=== PATIENT | female | born 1975 | race Caucasian/White ===

== ENCOUNTER 2023-11-02 12:40 | Emergency (ER) | payer OTHER, SELFPAY ==
[2023-11-02 12:42] VITALS: BP 172/103
--- NOTE | 2023-11-02 13:07 | ED.GENMED ---
History of Present Illness
General
Chief Complaint: Numbness
Source: patient
Time Seen by Provider: 11/02/23 13:07
Travel History
Have you had any contact with someone who has COVID-19?: No
Do you have any symptoms of coronavirus? Fever > 100 degrees, chills, cough, shortness of breath, sore throat, loss of taste or smell, muscle aches, or headache?: No
History of Present Illness
History of Present Illness:
48-year-old female presents to the emergency room complaining of paresthesias left face in the area of the mandible. This began yesterday. At that time she had no other associated symptoms. Patient was awoken from sleep at about midnight with
palpitations. She felt her heart was racing. He felt this way for couple hours and bring her from falling back to sleep. Eventually did fall back asleep plan to get up for work this morning. At work she began experiencing paresthesias of her
left arm and left leg. She feels like her left foot is 'in water'. She is able to ambulate. She is able to perform all daily activities. She is not having palpitations at this time. Additionally she had a mild headache this morning which seems
to be gone now as well.
Past History
Past History
ED Past Medical History: Other (Kidney stones, gallstones status post cholecystectomy, pyelo)
ED Past Surgical History: Cholecystectomy and Gynecological (Hysterectomy)
Social History
Tobacco: Smoker
Alcohol: Occasional
Family History
Family History: Negative Diabetes, Hypertension or CAD
Phy Exam
Physical Exam
Physical Exam:
General: Awake, Alert, Oriented X3. No acute distress.
Vitals: Moderately hypertensive
Head: Atraumatic
Eyes: Pupils equal, EOMI
Throat: Airway intact, no exudates
Neck: Trachea midline
Lungs: Clear and equal b/l
Heart: Regular rate, no murmurs
Abd: Soft, Nontender, No pulsatile mass
Neuro: Cranial nerves intact, muscle strength equal bilaterally, cerebellar exam normal
Skin: Warm, dry, no rash
Extremities: pulses equal b/l, no edema
Course
Orders/Labs/Results
Orders:
Orders
11/02/23 12:41
EKG [Electrocardiogram (*1)] Urgent
Reason for Study: Palpitations
EKG- Treatment ONCE
11/02/23 13:20
CT Head W/o Iv Contrast Urgent
Comment:
Reason For Exam: paresthesia left side
Cardiac Monitoring- Treatment ONCE
11/02/23 13:27
Basic Metabolic Panel Urgent
Complete Blood Count/With Diff Urgent
Lyme Progressive Urgent
TSH Reflex To Free T4 Urgent
Abnormal Lab Results
11/02/23
13:27
Absolute Monos (auto) 0.7 H 10^3/uL
(0.1-0.6)
Lymphocytes % 17.7 L %
(20.5-51.1)
Sodium 133 L mmol/L
(135-145)
Glucose 104 H mg/dl
(70-99)
11/02/23 13:27
11/02/23 13:27
Vital Signs
Initial and Last Documented VS:
Initial Vital Signs
Temp Pulse Resp BP Pulse Ox
97.6 F 83 18 172/103 98
11/02/23 12:42 11/02/23 12:42 11/02/23 12:42 11/02/23 12:42 11/02/23 12:42
Last Documented Vital Signs
Temp Pulse Resp BP Pulse Ox
97.6 F 83 18 172/103 98
11/02/23 12:42 11/02/23 12:42 11/02/23 12:42 11/02/23 12:42 11/02/23 12:42
*EKG
Interpreted by ED Provider?: Yes
Heart Rate: 66
Rate: normal
Rhythm: sinus
[place]: normal axis
Interval: normal interval
QRS Pattern: normal QRS
Ischemia: no ischemia
*Cub Reporter Interpretation
Rate: normal
Interpretation: normal
Rhythm: sinus
*Critical Care Note
Total Time (30-74mins, 75-104mins- exclusive of procedures): Not Applicable
ED Attending Note
-
Portions of this chart may have been created with voice recognition software.� Occasional wrong word or��sound alike� substitutions may have occurred due to the inherent limitations of voice recognition software.
Discharge Plan
Departure
Patient Disposition: Home (Routine Discharge)
Date of Disposition: 11/02/23
Time of Disposition: 15:32
Patient with high blood pressure during this ER visit?: No
Condition: Good
Discharge Problem:
Paresthesia
Instructions: Paresthesia (DC)
Prescriptions:
No Action
fluticasone propionate 1 SPRAY spray,suspension
1 spray intranasal DAILYPRN PRN (Reason: allergies,congestion)
loratadine 10 MG tablet
10 mg PO DAILYPRN PRN (Reason: allergies)
acetaminophen 325 MG tablet
650 mg PO Q6HPRN PRN (Reason: mild pain/ fever>100.5F) 0RF
melatonin 3 MG tablet
3 mg PO HS 0RF
tramadol 50 MG tablet
50 mg PO Q6HPRN PRN (Reason: for mod pain ) Qty: 16 0RF
calcium carbonate [Antacid (calcium carbonate)] 1 TABLET tablet,chewable
1 tab PO Q6HPRN PRN (Reason: indigestion/belching) 0RF
levofloxacin 500 MG tablet
500 mg PO DAILY Qty: 10 0RF
Referrals:
Brennon Hooper MD [Active] -
Baldomero Balderrama MD [Family Provider] -
Interventions
Interventions:
*Risk Screen - Suicide Last Done: 11/02/23 12:42
*General Assessment Last Done: 11/02/23 12:42
*Neglect/Abuse Screening Last Done: 11/02/23 12:42
*ED COVID-19 Vaccine History Last Done: 11/02/23 12:42
ED- Neurological Assessment Last Done: 11/02/23 13:38
Discharge Date and Time
Print Language: TAJIK
[2023-11-02 13:59] LABS: % Eosinophils 0.4 % (0-6); % Immature Granulocytes 0.3 % (0-0.5); % Lymphocytes 17.7 % (20.5-51.1); % Monocytes 9.1 % (1.7-9.3); % Neutrophils 71.5 % (42.2-75.2); Absolute Basophils 0.1 10^3/uL (0-0.2); Absolute Lymphocytes 1.3 10^3/uL (1.2-3.4); Absolute Monocytes 0.7 10^3/uL (0.1-0.6); Absolute Neutrophils 5.1 10^3/uL (1.4-6.5); Hematocrit 38.9 % (37.0-47.0); Hemoglobin 13.1 g/dL (12.0-16.0); Mean Corp Hgb Conc. 33.7 g/dL (33.0-37.0); Mean Platelet Volume 9.3 fL (7.4-10.4); Nucleated Red Blood Cells % 0 %; Platelet Count 238 10^3/uL (130-400); Red Blood Cell Count 4.23 10^6/uL (4.20-5.40); Red Cell Dist. Width 11.9 % (11.5-14.5); White Blood Cell Count 7.1 10^3/uL (4.8-10.8)
[2023-11-02 14:13] LABS: Blood Urea Nitrogen 15 mg/dl (7-17); Calcium 10.1 mg/dl (8.4-10.2); Carbon Dioxide 23 mmol/L (22-30); Chloride 103 mmol/L (98-107); Glucose 104 mg/dl (70-99); Potassium 4.4 mmol/L (3.5-5.1); Sodium 133 mmol/L (135-145); eGFR > 60.00
[2023-11-02 14:43] LABS: TSH Reflex To Free T4 2.19 uIU/ml (0.47-4.68)
[2023-11-06 16:55] LABS: Lyme Antibody Screen, EIA Negative (Negative)
== END 2023-11-02 15:49 | disposition home or self-care (01) ==
LOC: EMR 12:40
PROVIDERS: EMERGENCY PHYSICIAN Emergency Medicine; FAMILY PHYSICIAN Family Medicine
DX: R20.2 Paresthesia of skin (principal); F17.200 Nicotine dependence, unspecified, uncomplicated; Z87.442 Personal history of urinary calculi; Z90.49 Acquired absence of other specified parts of digestive tract; Z90.710 Acquired absence of both cervix and uterus
CPT/HCPCS: 99284; 70450; 80048; 84443; 85025; 86618; 93005

== ENCOUNTER → 2023-12-01 09:14 | Outpatient (REF) | payer OTHER, SELFPAY | LOC: HWRCS 09:14 | PROVIDERS: ATTENDING PHYSICIAN Internal Medicine Cardiovascular Disease; FAMILY PHYSICIAN Nurse Practitioner Family | DX: R07.89 Other chest pain (principal) | CPT/HCPCS: 93306 ==

== ENCOUNTER → 2023-12-22 15:03 | Outpatient (REF) | payer OTHER, SELFPAY | LOC: RCS 15:03 | PROVIDERS: ATTENDING PHYSICIAN Internal Medicine Cardiovascular Disease; FAMILY PHYSICIAN Nurse Practitioner Family | DX: R06.02 Shortness of breath (principal); R07.89 Other chest pain; R00.2 Palpitations; R03.0 Elevated blood-pressure reading, without diagnosis of hypertension; Z82.49 Family history of ischemic heart disease and other diseases of the circulatory system | CPT/HCPCS: 93017 ==

== ENCOUNTER 2024-07-17 06:24 | Day surgery (SDC) | payer OTHER, SELFPAY | END 2024-07-17 14:42 | disposition home or self-care (01) | LOC: GI 06:24 | PROVIDERS: ATTENDING PHYSICIAN Internal Medicine Gastroenterology | DX: Z12.11 Encounter for screening for malignant neoplasm of colon (principal); D12.4 Benign neoplasm of descending colon; K57.30 Diverticulosis of large intestine without perforation or abscess without bleeding; K64.8 Other hemorrhoids; Z83.719 Family history of colon polyps, unspecified | CPT/HCPCS: 45385; 88305 ==